=== PATIENT | female | born 1985 | race Caucasian/White ===

== ENCOUNTER → 2019-01-18 11:50 | Outpatient (CLI) | payer OTHER, SELFPAY ==
[2019-01-18 16:07] LABS: HCG Quantitative /Beta subunit < 2.39 mIU/mL
== END ==
PROVIDERS: PCP Nurse Practitioner; Visit Provider Nurse Practitioner
DX: O00.109 Unspecified tubal pregnancy without intrauterine pregnancy (principal); R10.31 Right lower quadrant pain
CPT/HCPCS: 36415; 84702

== ENCOUNTER → 2019-01-18 12:11 | Outpatient (CLI) | payer OTHER, SELFPAY ==
--- NOTE | 2019-01-18 12:22 | DI.US.S_ITS ---
PROCEDURE: US PELVIC COMPLETE INDICATIONS: rule out tubal TECHNIQUE: Real-time scanning was performed of the pelvic organs, with image documentation. Additional endovaginal scanning was necessary due to incomplete visualization of the adnexal and endometrial structures by transabdominal scanning. COMPARISON: [facility], , PELVIC COMPLETE, 01/09/2017, 16:25. FINDINGS: Transabdominal scanning: Limited scanning through the kidneys shows no hydronephrosis. No pathologic free abdominal or pelvic fluid. Endovaginal scanning: Uterus: Uterus is normal in size at 8.7 x 3.9 x 4.6 cm. The endometrium measures 11.4 mm in combined thickness. Ovaries: Dominant follicle or ovary measuring 2.1 x 2.0 x 2.5 cm. No adnexal masses or free fluid seen. IMPRESSION: No intra-or extrauterine is identified. Differential considerations would include spontaneous , early intrauterine gestation as well as occult ectopic ; however there are no secondary signs for ectopic seen. Recommend clinical correlation with serial beta-hCGs and/or followup sonographic imaging if indicated. Dictated by: Donovan COSTELLO Interpreted: Lydia Hare MD on 01/18/2019 at 13:33 Approved by: Lydia Hare M.D. on 01/18/2019 at 13:50
== END ==
PROVIDERS: PCP Nurse Practitioner; Visit Provider Nurse Practitioner
DX: O00.109 Unspecified tubal pregnancy without intrauterine pregnancy (principal); R10.31 Right lower quadrant pain
CPT/HCPCS: 36415; 76856; 84702

== ENCOUNTER → 2019-01-21 08:39 | Outpatient (CLI) | payer OTHER, SELFPAY ==
--- NOTE | 2019-01-21 08:40 | DI.US.S_ITS ---
PROCEDURE: US ABDOMEN COMPLETE INDICATIONS: Abdominal pain TECHNIQUE: Real-time scanning was performed of the abdominal and retroperitoneal organs, with image documentation. COMPARISON: [facility], CT, ABDOMEN/PELVIS WITH CONTRAST, 01/09/2017, 17:51. FINDINGS: Technically suboptimal exam secondary to patient body habitus and echogenic liver. Liver: Liver is normal in size and moderately diffusely hyperechoic and parenchymal echotexture. No discrete mass is detected. Gallbladder: The gallbladder contains a stone measuring about 3 cm, non-mobile with change in patient position. The layne of normal thickness and there is no pericholecystic fluid or Maharaj's sign. Biliary ducts: Intrahepatic bile ducts are non-dilated. Extrahepatic bile duct caliber measures 6 mm. Normal is 6-7 mm or less in diameter, or 10 mm or less post-cholecystectomy. Pancreas: Visualized portions of the pancreas are sonographically normal. Spleen: Spleen is normal in size and homogeneous in echotexture. Kidneys: Kidneys are normal in size and echotexture. Right kidney measures 10.0 cm long; left kidney measures 12.1 cm long. No hydronephrosis or nephrolithiasis. No solid masses. Aorta: Visualized aorta is normal in caliber at less than 3 cm. Iliacs: Nonvisualized due to bowel gas.. IVC: Intrahepatic inferior vena cava is patent. Miscellaneous: No free abdominal fluid. Appendix not visualized. Right ovary measures 4.0 cm and contains a dominant follicle measuring about 2.0 cm. Normal ovarian vascular flow. No right adnexal fluid. IMPRESSION: 1. Cholelithiasis without sonographic signs of acute cholecystitis. 2. Right ovary contains a dominant follicle the without adjacent fluid. 3. Nonvisualized appendix. 4. Hepatic steatosis limiting sonographic evaluation of the liver and right upper quadrant structures. Dictated by: Lydia Hare M.D. on 01/21/2019 at 11:09 Approved by: Lydia Hare M.D. on 01/21/2019 at 11:16
== END ==
PROVIDERS: PCP Nurse Practitioner; Visit Provider Nurse Practitioner
DX: R10.31 Right lower quadrant pain (principal); K80.20 Calculus of gallbladder without cholecystitis without obstruction; K76.0 Fatty (change of) liver, not elsewhere classified
CPT/HCPCS: 76700

== ENCOUNTER → 2019-04-20 13:33 | Outpatient (CLI) | payer OTHER, SELFPAY ==
[2019-04-20 16:30] LABS: Alanine Aminotransferase 29 IU/L (9-52); Aspartate Aminotransferase 21 IU/L (14-36)
== END ==
PROVIDERS: PCP Nurse Practitioner; Visit Provider Nurse Practitioner
DX: K76.0 Fatty (change of) liver, not elsewhere classified (principal)
CPT/HCPCS: 36415; 84450; 84460

== ENCOUNTER → 2020-05-30 15:10 | Outpatient (CLI) | payer OTHER, SELFPAY ==
[2020-05-31 09:48] LABS: COVID19 Sendout Not Detected (Not Detect)
== END ==
PROVIDERS: PCP Nurse Practitioner; Visit Provider Physician Assistant
DX: Z20.828 Contact with and (suspected) exposure to other viral communicable diseases (principal); J02.9 Acute pharyngitis, unspecified
CPT/HCPCS: 87070; 87635

== ENCOUNTER → 2020-12-07 15:12 | Outpatient (CLI) | payer OTHER, SELFPAY ==
[2020-12-07 15:50] LABS: Add Manual Diff / Slide Review NO; Basophils Absolute Auto 100 /uL (0-100); Basophils Percent Auto 1.3 % (0-2); Eosinophils Absolute Auto 500 /uL (0-450); Eosinophils Percent Auto 5.6 % (2-4); Hematocrit 37.7 % (36-46); Hemoglobin 12.4 g/dL (12.0-16.0); Lymphocytes Absolute Auto 1800 /uL (1100-4500); Lymphocytes Percent Auto 19.7 % (25-40); Mean Corpuscular HGB Conc 32.8 % (30-36); Mean Corpuscular Hemoglobin 26.1 PG (26-34); Mean Corpuscular Volume 79.4 fL (80-100); Monocytes Absolute Auto 500 /uL (0-900); Monocytes Percent Auto 5.4 % (3-14); Neutrophils Absolute Auto 6100 /uL (1500-7000); Platelet Count 270 X10^3/uL (150-400); Red Blood Cell Count 4.75 X10^6/uL (4.0-5.2); Red Cell Distribution Width 16.9 % (11.6-14.8); White Blood Cell Count 8.9 X10^3/uL (4.5-11.0)
[2020-12-07 16:23] LABS: Alanine Aminotransferase 13 IU/L (<35); Albumin 4.2 g/dL (3.5-5.0); Albumin Globulin Ratio 1.2 (1.0-2.8); Alkaline Phosphatase 104 U/L (38-126); Aspartate Aminotransferase 20 IU/L (14-36); BUN Creatinine Ratio 15.2 (6-22); Bilirubin Total 0.5 mg/dL (0.2-1.3); Blood Urea Nitrogen 14 mg/dL (7-17); Calcium 9.4 mg/dL (8.4-10.2); Carbon Dioxide 26 mmol/L (22-32); Chloride 105 mmol/L (98-107); Cholesterol 185 mg/dL (140-199); Estimated Glomerular Filt Rate > 60.0 mL/min (>60); Globulin 3.4 g/dL (1.7-4.1); Glucose 94 mg/dL (70-100); HDL Cholesterol 33 mg/dL (40-60); HEMOLYSIS 19 (0-50); Potassium 4.5 mmol/L (3.4-5.1); Sodium 138 mmol/L (137-145); Total Protein 7.6 g/dL (6.3-8.2)
[2020-12-07 16:37] LABS: Triglycerides 558 mg/dL (35-150)
[2020-12-07 16:39] LABS: Free T3, Triiodothyronine Free 2.89 pg/mL (2.77-5.27); Free T4, Direct Thyroxine 1.11 ng/dL (0.78-2.19)
[2020-12-07 16:53] LABS: Thyroid Stimulating Hormone 1.15 uIU/mL (0.47-4.68)
== END ==
PROVIDERS: PCP Nurse Practitioner; Referring Provider Nurse Practitioner; Visit Provider Nurse Practitioner
DX: Z00.00 Encounter for general adult medical examination without abnormal findings (principal); I10 Essential (primary) hypertension
CPT/HCPCS: 36415; 80053; 80061; 84439; 84443; 84481; 85025

== ENCOUNTER → 2020-12-13 09:28 | Outpatient (CLI) | payer OTHER, SELFPAY ==
[2020-12-13 11:36] LABS: Hepatitis B Surface Antigen NEGATIVE s/c (NEGATIVE)
[2020-12-13 11:54] LABS: HIV 1 & 2 Ab/Ag 4th Gen Combo NEGATIVE (NEGATIVE); Hep C Virus Ab w/Reflex Quant NEGATIVE s/c (NEGATIVE)
[2020-12-14 03:47] LABS: HSV 2 IGG AB < 0.91 index (0.00-0.90)
[2020-12-14 07:09] LABS: RPR Screen Non Reactive (Non Reactive)
[2020-12-14 16:36] LABS: HSV I/II IgM <0.91 Ratio (0.00-0.90)
== END ==
PROVIDERS: PCP Nurse Practitioner; Referring Provider Nurse Practitioner; Visit Provider Nurse Practitioner
DX: E78.2 Mixed hyperlipidemia (principal); Z11.3 Encounter for screening for infections with a predominantly sexual mode of transmission
CPT/HCPCS: 36415; 86592; 86694; 86695; 86696; 86803; 87340; 87389

== ENCOUNTER → 2021-04-26 12:18 | Outpatient (CLI) | payer OTHER, SELFPAY ==
[2021-04-26 13:33] LABS: Cholesterol 178 mg/dL (140-199); HDL Cholesterol 38 mg/dL (40-60); LDL Cholesterol Calculated 92 mg/dL (<100); Triglycerides 240 mg/dL (35-150)
== END ==
PROVIDERS: PCP Nurse Practitioner; Referring Provider Nurse Practitioner; Visit Provider Nurse Practitioner
DX: E78.2 Mixed hyperlipidemia (principal)
CPT/HCPCS: 36415; 80061